=== PATIENT | female | born 1960 ===

== ENCOUNTER → 2019-06-28 | Outpatient (REF) | payer BC ==
[2019-06-28 21:52] LABS: COLOR, URINE MANUAL ORANGE (YELLOW)
[2019-06-28 21:53] LABS: APPEARANCE, URINE MANUAL CLEAR (CLEAR)
[2019-06-28 21:55] LABS: BILIRUBIN, URINE MANUAL OBSCURED (NEGATIVE); BLOOD URINE MANUAL OBSCURED (NEGATIVE); GLUCOSE, URINE (UA) MANUAL OBSCURED mg/dL (NEGATIVE); KETONE, URINE MANUAL OBSCURED mg/dL (NEGATIVE); LEUKOCYTE ESTERASE, URINE MAN OBSCURED (NEGATIVE); NITRITE, URINE MANUAL OBSCURED (NEGATIVE); PROTEIN, URINE MANUAL OBSCURED mg/dL (NEGATIVE); UROBILINOGEN, URINE MANUAL OBSCURED mg/dl (NORMAL)
[2019-06-28 22:17] LABS: RBC, URINE NONE SEEN /hpf (0-3)
[2019-06-28 22:18] LABS: BACTERIA, URINE NONE SEEN; HYALINE CAST, URINE NONE SEEN /lpf (0-1); SQUAMOUS EPITHELIAL CELL URINE SMALL AMOUNT /hpf (SMALL AMT)
== END ==
LOC: M LAB REF 10:32
PROVIDERS: ATTEND Physician Assistant Medical
DX: N39.0 Urinary tract infection, site not specified (principal)